=== PATIENT | male | born 1955 | race Caucasian/White ===

== ENCOUNTER 2018-10-26 09:01 | Emergency (ER) | payer OTHER ==
[~2018-10-26] VITALS: Wt 86.0 kg
[2018-10-26] MEDS ORDERED: ASPIRIN 81 MG TAB PO STA (09:46)
[2018-10-26] MEDS ORDERED: NITROGLYCERIN 2% 1 GM OINT PKT TD STA (09:46)
[2018-10-26] MEDS ORDERED: NITROGLYCERIN (SL) 0.4 MG TAB SL PRN (10:00)
[2018-10-26] MEDS ORDERED: CARV3.1260 ORAL (10:25)
[2018-10-26] MEDS ORDERED: RAMI2.5C36 ORAL (10:25)
[2018-10-26] MEDS ORDERED: CLOP75TA19 PO (10:25)
[2018-10-26] MEDS ORDERED: ACETAMINOPHEN 325 MG TAB PO PRN (11:30)
[2018-10-26] MEDS ORDERED: ONDANSETRON 4 MG INJ IV PRN (11:30)
--- NOTE | 2018-10-26 11:45 | PDOCDIS ---
Discharge Instructions CONDITION [id number] Patient Condition: [id number] Good HOME CARE INSTRUCTIONS: [id number] Diet Instructions: [id number] Low Fat /Cholesterol ACTIVITY: [id number] Activity Restrictions: [id number] No Restrictions FOLLOW UP/APPOINTMENTS Follow-up Plan pcp 1 week cardiology RENITA WALTERS MD Oct 26, 2018 11:45
[2018-10-26 12:00] VITALS: BP 109/81; PULSE 86; RESP 20
--- NOTE | 2018-10-26 12:50 | ERD ---
ER Documentation Chief Complaint Chief Complaint chest pain for the past 2 days. no signs of sob. no diaphoresis, no radiate HPI Patient is a 62-year-old male with coronary disease and hypertension he says that he has "pain in the heart". A video security public safety officer was used for the entire history and physical exam. The patient reports that his pain is severe. Over the past 5 days. It comes and goes. He has a history of 2 stents in the past. Upon review of old medical records this is the patient's first visit to the emergency department. He said that his primary doctor is Dr. Negrete. ROS All systems reviewed and are negative except as per history of present illness. Medications Home Meds Reported Medications Clopidogrel Bisulfate* (Clopidogrel Bisulfate*) 75 Mg Tablet, 75 MG PO DAILY, #30 TAB 10/26/18 Carvedilol* (Carvedilol*) 3.125 Mg Tablet, 1 TAB ORAL BID 10/26/18 Ramipril (Ramipril) 2.5 Mg Capsule, 1 CAP ORAL DAILY 10/26/18 Allergies Allergies: Coded Allergies: No Known Allergy (Unverified , 10/26/18) PMhx/Soc History of Surgery: No Anesthesia Reaction: No Hx Neurological Disorder: No Hx Respiratory Disorders: No Hx Cardiac Disorders: No Hx Psychiatric Problems: No Hx Miscellaneous Medical Probl: Yes (Cardiac problems) Hx Alcohol Use: No Hx Substance Use: No Hx Tobacco Use: No Smoking Status: Never smoker FmHx Family History: No coronary disease Physical Exam Vitals Vital Signs Date Temp Pulse Resp B/P (MAP) Pulse Ox O2 O2 Flow FiO2 Time Delivery Rate 10/26/18 98.3 86 20 109/81 98 Room Air 12:00 (90) 10/26/18 Nasal 10:13 Cannula 10/26/18 98.3 86 20 113/73 98 Room Air 10:00 (86) 10/26/18 97.5 51 16 142/84 98 09:14 (103) Physical Exam Const: No acute distress Head: Atraumatic Eyes: Normal Conjunctiva ENT: Normal External Ears, Nose and Mouth. Neck: Full range of motion. No meningismus. Resp: Clear to auscultation bilaterally Cardio: Regular rate and rhythm, no murmurs Abd: Soft, non tender, non distended. Normal bowel sounds Skin: No petechiae or rashes Back: No midline or flank tenderness Ext: No cyanosis, or edema Neur: Awake and alert Psych: Normal Mood and Affect Result Diagram: 10/26/18 1008 10/26/18 1008 Results 24 hrs Laboratory Tests Test 10/26/18 10:08 White Blood Count 5.1 10^3/ul Red Blood Count 5.42 10^6/ul Hemoglobin 16.2 g/dl Hematocrit 49.1 % Mean Corpuscular Volume 90.6 fl Mean Corpuscular Hemoglobin 29.9 pg Mean Corpuscular Hemoglobin Concent 33.0 g/dl Red Cell Distribution Width 13.8 % Platelet Count 127 10^3/UL Mean Platelet Volume 12.4 fl Immature Granulocytes % 0.400 % Neutrophils % 56.8 % Lymphocytes % 33.7 % Monocytes % 6.9 % Eosinophils % 1.6 % Basophils % 0.6 % Nucleated Red Blood Cells % 0.0 /100WBC Immature Granulocytes # 0.020 10^3/ul Neutrophils # 2.9 10^3/ul Lymphocytes # 1.7 10^3/ul Monocytes # 0.4 10^3/ul Eosinophils # 0.1 10^3/ul Basophils # 0.0 10^3/ul Nucleated Red Blood Cells # 0.0 10^3/ul Sodium Level 141 mmol/L Potassium Level 4.5 mmol/L Chloride Level 107 mmol/L Carbon Dioxide Level 23 mmol/L Anion Gap 11 Blood Urea Nitrogen 25 mg/dl Creatinine 0.98 mg/dl Est Glomerular Filtrat Rate mL/min > 60 mL/min Glucose Level 87 mg/dl Calcium Level 9.9 mg/dl Troponin I < 0.012 ng/ml Current Medications Medications Dose Sig/Robert Start Time Status Last (Trade) Ordered Route PRN Stop Time Admin Dose Reason Admin Aspirin 162 mg ONCE STAT 10/26/18 DC 10/26/18 (Aspirin) PO 09:46 10:18 10/26/18 09:48 1 inch ONCE STAT 10/26/18 DC 10/26/18 Nitroglycerin TD 09:46 10:19 10/26/18 09:48 (Nitroglyceri n 2% Oint) 1 tab Q5M UP TO 3 10/26/18 DC 10/26/18 Nitroglycerin DOSES PRN 10:00 10:18 SL .CHEST 10/26/18 12:21 (Nitroglyceri PAIN n (Sl Tab) 0.4 Mg) Ondansetron 4 mg ER BRIDGE 10/26/18 DC HCl (Zofran PRN IV 11:30 Inj) NAUSEA/VOMITI 10/26/18 12:21 NG 650 mg ER BRIDGE 10/26/18 DC Acetaminophen PRN PO 11:30 (Tylenol .MILD PAIN 10/26/18 12:21 Tab) 1-3 OR TEMP Procedures/MDM EKG read by me: Rate/Rhythm: Bigeminy at a normal rate Intervals: Normal Impression: Bigeminy without ischemia Chest x-ray read by radiology. Smoking Cessation Therapy: Pt. was lectured for greater than 3 minutes on the health risks of continued smoking and the benefits of cessation. Patient is a 62-year-old male with history of cardiac disease with 2 stents and smoking who presents with chest pain. I was concerned for potential acute coronary syndrome. I doubt pneumonia, pneumothorax, pulmonary boredom, or aortic dissection. The patient was going to be admitted to the care of Dr. Baires as he has [place] insurance. Dr. Lord came to the bedside and saw the patient and feels like this patient has muscular skeletal chest pain and does not require admission for cardiac work-up at this time. However he is going to arrange for outpatient cardiac work-up within the next [address] Baires has spoken to the patient and done the discharge instructions. Initial troponin is negative. The patient can return for any worsening symptoms. Departure Diagnosis: Primary Impression: Chest pain Chest pain type: unspecified Qualified Codes: R07.9 - Chest pain, unspecified Condition: Stable Patient Instructions: Chest Pain, Noncardiac INDERJIT MELÉNDEZ MD Oct 26, 2018 12:50
--- NOTE | 2018-10-26 14:03 | CONS ---
DATE OF ADMISSION: 10/26/2018 DATE OF CONSULTATION: 10/26/2018 CHIEF COMPLAINT: Sharp left-sided chest pain. HISTORY OF PRESENT ILLNESS: A 62-year-old male with history of coronary artery disease and hypertens ion, status post stent placement in [facility] in 05/2016, presented to Emergency Room with complaint of sharp, left-sided chest pain x1 week. The patient denies exertional chest pain. He denies shortnes s of breath. No nausea, vomiting or diaphoresis. Pain started since he started his new job which re quires heavy lifting. The pain radiates to his back. PAST MEDICAL HISTORY: 1. Coronary artery disease. 2. Hypertension. 3. Status post stent placement 05/2016. SOCIAL HISTORY: Patient lives at home. History was provided by one of the nurse translators and his daughter at the bedside. The patient denies tobacco or alcohol use. PHYSICAL EXAMINATION: GENERAL: Well-developed, well-nourished male who is in no apparent distress. VITAL SIGNS: Stable. He is afebrile. HEENT: Extraocular muscles intact. Pupils equal and reactive to light bilaterally. Sclerae are ani cteric. Oropharynx is clear and moist. NECK: Supple, no JVD, no carotid bruits. LUNGS: Clear to auscultation bilaterally. CARDIAC: Regular rate and rhythm. No murmurs or gallops. CHEST: Quite tender to palpation on the left lateral aspect. ABDOMEN: Soft, nontender, nondistended, normoactive bowel sounds. EXTREMITIES: No clubbing, cyanosis, or edema. NEUROLOGICAL: Nonfocal. LABORATORY DATA: All within normal limits. Troponin less than 0.012. CBC within normal limits. EK G in normal sinus rhythm with no ST-T wave changes. ASSESSMENT: 1. A 62-year-old male with atypical chest pain. This is musculoskeletal in nature and easily reprod ucible by palpation of the left lateral chest wall. 2. Coronary artery disease. 3. Hypertension, well controlled. 4. Status post percutaneous coronary intervention and stent placement in 05/2016. PLAN: Discharge home. Resume home medications. Tylenol as needed. Patient will be referred to a P CP and cardiology for further evaluation. Dictated By: RENITA LEO/YASHIRA Conf#: [id number] DID#: [id number] CC: MELO ADAMS DO;*EndCC*
== END 2018-10-26 12:21 | disposition home or self-care (01) ==
LOC: E/R 09:01 → CANBEDREQ 16:52
DX: R07.9 Chest pain, unspecified (principal); I10 Essential (primary) hypertension; R40.2142 Coma scale, eyes open, spontaneous, at arrival to emergency department; R40.2252 Coma scale, best verbal response, oriented, at arrival to emergency department; R40.2362 Coma scale, best motor response, obeys commands, at arrival to emergency department; Z98.61 Coronary angioplasty status
CPT/HCPCS: 36415; 71045; 80048; 84484; 85025; 93005; Z7502; Z7610